=== PATIENT | male | born 1975 | race Hispanic/Latino ===

== ENCOUNTER 2020-07-07 06:40 | Outpatient (CLI) | payer OTHER ==
[2020-07-07 14:57] LABS: Hemoglobin 14.5 g/dL (14.0-18.0); Mean Corpuscular HGB CONC 32.9 G/DL (32.0-36.0); Mean Corpuscular Hemoglobin 28.3 PG (27.0-33.0); Mean Platelet Volume 9.1 fl (7.4-10.4); Platelet Count 436 10x3/uL (130-400); RBC Distribution Width 13.2 % (11.5-14.5); Red Blood Cell (RBC) Count 5.13 10x6/uL (4.40-5.80); White Blood Cell (WBC) Count 6.7 10x3/uL (4.5-11.0)
[2020-07-08 03:14] LABS: SARS-CoV-2 MS2 Positive; SARS-CoV-2 N Gene Negative; SARS-CoV-2 S Gene Negative; SARS-CoV-2 by NAA Not Detected (NotDetected); SARS-CoV-2 orf1ab Negative
== END 2020-07-07 06:41 | disposition home or self-care (01) ==
LOC: LABBT 06:40
PROVIDERS: ATTEND Orthopaedic Surgery
DX: Z01.812 Encounter for preprocedural laboratory examination (principal); S83.241A Other tear of medial meniscus, current injury, right knee, initial encounter; Z20.828 Contact with and (suspected) exposure to other viral communicable diseases
CPT/HCPCS: 85027; 87635; U0003

== ENCOUNTER 2020-07-12 05:44 | Day surgery (SDC) | payer OTHER ==
[2020-07-11 09:15] VITALS: BMI 32.5
[2020-07-12] MEDS ORDERED: PROPOFOL 20 ML ONE (06:39)
[2020-07-12] MEDS ORDERED: Fentanyl 100 MCG/2 ML VIAL ONE (07:36)
--- NOTE | 2020-07-12 09:30 | OP ---
DATE OF PROCEDURE: 07/12/2020 PREOPERATIVE DIAGNOSIS: Right knee posterior horn medial meniscus tear. POSTOPERATIVE DIAGNOSES: 1. Right knee posterior horn medial meniscus tear. 2. 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 SHOCHET: None. PROCEDURE PERFORMED: Right knee arthroscopy with partial medial meniscectomy. ESTIMATED BLOOD LOSS: Minimal. COMPLICATIONS: None. ANESTHESIA: The patient did have a general anesthetic as well as local knee block. DISPOSITION: Went to recovery room in stable condition. INDICATIONS FOR PROCEDURE: A 45-year-old male who has been having problems with pain, catching, and swelling in the knee and at this time, he has failed nonoperative treatment and wished to have surgery. DESCRIPTION OF PROCEDURE: After all appropriate consent forms were explained and signed, he was taken back to the operating room and at this time was given general anesthetic. Once the level of anesthesia was appropriate, tourniquet was placed to the right thigh. Leg was placed in arthroscopic leg veneg[place]. The limb was exsanguinated, and the tourniquet was taken up to 300 mmHg. Inferolateral portal was established. Scope was placed into the knee joint. Needle localization technique was then used to make a medial working portal. Diagnostic arthroscopy commenced in the notch. ACL and PCL were probed, found to be intact. The medial compartment showed there to be a cartilage lesion on the medial femur towards the notch, this was grade 2 and 3 changes with some unstable chondral flaps, which were gently debrided back to a stable base. The tip was in good condition. Complex tear of the posterior horn medial meniscus was noted including a vertical tear followed by horizontal cleavage component and partial meniscectomy was performed with meniscal biter and shaver back to a stable base. Lateral compartment was evaluated. Lateral meniscus was intact. Tibial plateau was intact. However, there was a grade 3 and 4 lesion on the lateral femoral condyle and grade 4 areas had some stable fibrocartilage on it. The periphery of the grade 3 and some unstable chondral flaps were gently debrided with mechanical shaver. We turned our attention to the gutters, both were gone through without noting the loose bodies. The patellofemoral joint overall was in good condition. There were some small early changes on the proximal and lateral facet of patella and there was a grade 3 lesion on the medial aspect of the trochlea, but no treatment was needed. At this time, scope was removed. Knee was drained. Portals were closed with simple nylon stitch. Bulky sterile dressing was applied and tourniquet was let down. Toes pinked up nicely. The patient was awakened and was taken to the recovery room in stable condition. All counts were correct at the end of the case and he did receive preoperative IV antibiotics. Job ID: [id number]
[2020-07-12] MEDS ORDERED: HYDROcodone/Acetaminophen 5/325 mg Tablet ONE (09:38)
== END 2020-07-12 10:05 | disposition home or self-care (01) ==
LOC: SDC 05:44
PROVIDERS: ATTEND Orthopaedic Surgery
PROC: 0SBC4ZZ Excision of Right Knee Joint, Percutaneous Endoscopic Approach (ICD-10-PCS; principal; 2020-07-12)
DX: S83.231A Complex tear of medial meniscus, current injury, right knee, initial encounter (principal); M23.8X1 Other internal derangements of right knee; M22.41 Chondromalacia patellae, right knee; X58.XXXA Exposure to other specified factors, initial encounter; Y93.67 Activity, basketball
CPT/HCPCS: J0690; J2704; J3010